=== PATIENT | female | born 1980 | race Caucasian/White ===

== ENCOUNTER 2018-10-07 16:20 | Outpatient (CLI) | payer MEDICAID | END 2018-10-07 17:44 | disposition home or self-care (01) | LOC: OBT 16:20 → L-D 16:21 → OBT 17:44 | DX: O36.8120 Decreased fetal movements, second trimester, not applicable or unspecified (principal); O09.512 Supervision of elderly primigravida, second trimester; Z3A.26 26 weeks gestation of pregnancy | CPT/HCPCS: 76815 ==

== ENCOUNTER 2018-12-31 21:57 | Inpatient (IN) | payer MEDICAID ==
[2018-12-31] MEDS ORDERED: CARBOPROST 250 MCG INJ IM (22:30)
[2018-12-31] MEDS ORDERED: LIDOCAINE 1% (MPF) 30 ML INJ INJ (22:30)
[2018-12-31] MEDS ORDERED: OXYTOCIN 30 UNITS/LR 500 ML IV ×2 (22:30)
[2018-12-31] MEDS ORDERED: BUTORPHANOL 2 MG INJ IV (22:30)
[2018-12-31] MEDS ORDERED: MISOPROSTOL 200 MCG TAB PR (22:30)
[2018-12-31] MEDS ORDERED: METHYLERGONOVINE 0.2 MG INJ IM (22:30)
[2018-12-31] MEDS ORDERED: IBUPROFEN 600 MG TAB PO (22:30)
[2018-12-31] MEDS: LACTATED RINGER'S 1,000 ML IV ×2 (22:42→22:43)
[2018-12-31 22:50] LABS: ADD MAN DIFF? NO
[2018-12-31] MEDS: AMPICILLIN 2 GM/NS (PMX) 100 ML IV (22:53)
[2018-12-31 22:58] LABS: BASOPHIL # 0.1 10^3/ul (0.0-0.1); BASOPHILS % 0.2 % (0.0-2.0); HEMATOCRIT 39.9 % (37.0-47.0); HEMOGLOBIN 13.3 g/dl (12.0-16.0); LYMPHOCYTES # 1.3 10^3/ul (0.8-2.9); LYMPHOCYTES % 5.9 % (15.0-51.0); MEAN CORPUSCULAR HEMOGLOBIN 29.6 pg (29.0-33.0); MEAN CORPUSCULAR HGB CONC 33.3 g/dl (32.0-37.0); MEAN CORPUSCULAR VOLUME 88.9 fl (82.0-101.0); MEAN PLATELET VOLUME 10.9 fl (7.4-10.4); MONOCYTE # 1.1 10^3/ul (0.3-0.9); MONOCYTES % 4.9 % (0.0-11.0); NEUTROPHIL # 19.7 10^3/ul (1.6-7.5); NEUTROPHILS % 88.4 % (39.0-77.0); PLATELET COUNT 245 10^3/UL (140-415); RED BLOOD COUNT 4.49 10^6/ul (4.20-5.40); RED CELL DISTRIBUTION WIDTH 14.1 % (11.5-14.5)
[2018-12-31 22:58] LABS: WHITE BLOOD COUNT 22.3 10^3/ul (4.8-10.8)
[2018-12-31 23:18] LABS: INR 0.87; PROTIME 11.9 Sec (11.9-14.9); PT RATIO 0.9
[2018-12-31] MEDS ORDERED: FENTAnyl 50 MCG/ML VIAL (23:20)
[2018-12-31] MEDS ORDERED: FENTAnyl 2MCG/ML-ROPIV 0.2% 100 ML (23:20)
[2018-12-31 23:26] LABS: GLUCOSE 159 mg/dl (70-220)
[2018-12-31] MEDS ORDERED: NALOXONE (0.4 MG/ML) INJ IV (23:30)
[2018-12-31 23:59] LABS: HEPATITIS B SURFACE ANTIGEN NEGATIVE (NEGATIVE)
[2019-01-01] MEDS: LACTATED RINGER'S 1,000 ML IV ×4 (04:57→20:03)
[2019-01-01] MEDS: AMPICILLIN 1 GM/NS (PMX) 50 ML IV ×3 (05:02→12:48)
[2019-01-01] MEDS: FENTAnyl 2MCG/ML-ROPIV 0.2% 100 ML BAG EPI (06:56)
[2019-01-01] MEDS: OXYTOCIN 30 UNITS/LR 500 ML IV ×2 (09:11→21:18)
[2019-01-01] MEDS ORDERED: SOD CHLORIDE 0.9% 1,000 ML IV (14:00)
[2019-01-01] MEDS ORDERED: CEFAZOLIN 2 GM/50 ML (PMX) 50 ML IVPB (15:34)
[2019-01-01] MEDS ORDERED: OXYTOCIN 30 UNITS/LR 500 ML BAG IV (15:50)
[2019-01-01] MEDS ORDERED: morphine SULFATE/PF (10 MG/10 ML) INJ (15:50)
[2019-01-01] MEDS ORDERED: PHENYLephrine 10 MG INJ (15:54)
[2019-01-01] MEDS ORDERED: ONDANSETRON 4 MG INJ (15:55)
[2019-01-01] MEDS ORDERED: OXYTOCIN 10 UNIT INJ (15:55)
[2019-01-01] MEDS ORDERED: OXYTOCIN 30 UNITS/LR 500 ML IV ×2 (16:00→20:30)
[2019-01-01] MEDS ORDERED: METHYLERGONOVINE 0.2 MG INJ IM (16:00)
[2019-01-01] MEDS ORDERED: MISOPROSTOL 200 MCG TAB PR ×2 (16:00→20:30)
[2019-01-01] MEDS ORDERED: CARBOPROST 250 MCG INJ IM ×2 (16:00→20:30)
[2019-01-01] MEDS ORDERED: ONDANSETRON 4 MG INJ IV (17:00)
[2019-01-01] MEDS ORDERED: DIPHENHYDRAMINE 50 MG INJ IV (17:00)
[2019-01-01] MEDS ORDERED: morphine 2 MG INJ IV (17:00)
[2019-01-01] MEDS ORDERED: NALOXONE (0.4 MG/ML) INJ IV (17:00)
[2019-01-01] MEDS: CEFAZOLIN 2 GM/50 ML (PMX) 50 ML IVPB (18:35)
[2019-01-01] MEDS: KETOROLAC 30 MG INJ IV (19:27)
[2019-01-01 20:12] LABS: RAPID PLASMA REAGIN NONREACTIVE (NR)
[2019-01-01] MEDS ORDERED: NACL 0.9% 3 ML SYG IV (20:30)
[2019-01-01] MEDS ORDERED: LANOLIN HPA 1 PKT TOP (20:30)
[2019-01-01] MEDS ORDERED: NA PHOSPHATE/BIPHOS 133 ML ENEMA PR (20:30)
[2019-01-02] MEDS: METHYLERGONOVINE 0.2 MG INJ IM (00:27)
[2019-01-02] MEDS: OXYTOCIN 30 UNITS/LR 500 ML IV (04:03)
[2019-01-02] MEDS: KETOROLAC 30 MG INJ IV ×2 (06:01→12:46)
[2019-01-02 11:11] LABS: ADD MAN DIFF? NO
[2019-01-02 11:13] LABS: WHITE BLOOD COUNT 19.1 10^3/ul (4.8-10.8)
[2019-01-02 11:13] LABS: BASOPHIL # 0.1 10^3/ul (0.0-0.1); BASOPHILS % 0.3 % (0.0-2.0); EOSINOPHILS % 0.2 % (0.0-7.0); HEMATOCRIT 28.8 % (37.0-47.0); HEMOGLOBIN 9.8 g/dl (12.0-16.0); LYMPHOCYTES # 1.2 10^3/ul (0.8-2.9); LYMPHOCYTES % 6.1 % (15.0-51.0); MEAN CORPUSCULAR HEMOGLOBIN 30.3 pg (29.0-33.0); MEAN CORPUSCULAR VOLUME 89.2 fl (82.0-101.0); MEAN PLATELET VOLUME 10.5 fl (7.4-10.4); MONOCYTE # 1.4 10^3/ul (0.3-0.9); MONOCYTES % 7.1 % (0.0-11.0); NEUTROPHIL # 16.4 10^3/ul (1.6-7.5); NEUTROPHILS % 85.8 % (39.0-77.0); PLATELET COUNT 186 10^3/UL (140-415); RED BLOOD COUNT 3.23 10^6/ul (4.20-5.40); RED CELL DISTRIBUTION WIDTH 14.4 % (11.5-14.5)
[2019-01-02] MEDS: LACTATED RINGER'S 1,000 ML IV ×3 (12:54→22:21)
[2019-01-02] MEDS: HYDROCODONE/APAP (5/325) TAB PO (19:04)
[2019-01-03] MEDS: HYDROCODONE/APAP (5/325) TAB PO ×2 (00:36→15:47)
[2019-01-03 05:18] LABS: ADD MAN DIFF? NO
[2019-01-03 05:22] LABS: BASOPHILS % 0.3 % (0.0-2.0); EOSINOPHILS # 0.2 10^3/ul (0.0-0.5); EOSINOPHILS % 1.1 % (0.0-7.0); HEMATOCRIT 25.3 % (37.0-47.0); HEMOGLOBIN 8.7 g/dl (12.0-16.0); LYMPHOCYTES # 1.9 10^3/ul (0.8-2.9); LYMPHOCYTES % 13.5 % (15.0-51.0); MEAN CORPUSCULAR HEMOGLOBIN 30.9 pg (29.0-33.0); MEAN CORPUSCULAR HGB CONC 34.4 g/dl (32.0-37.0); MEAN CORPUSCULAR VOLUME 89.7 fl (82.0-101.0); MEAN PLATELET VOLUME 11.2 fl (7.4-10.4); MONOCYTE # 1.1 10^3/ul (0.3-0.9); MONOCYTES % 7.8 % (0.0-11.0); NEUTROPHIL # 10.7 10^3/ul (1.6-7.5); NEUTROPHILS % 76.8 % (39.0-77.0); PLATELET COUNT 188 10^3/UL (140-415); RED BLOOD COUNT 2.82 10^6/ul (4.20-5.40); RED CELL DISTRIBUTION WIDTH 14.3 % (11.5-14.5)
[2019-01-03] MEDS: IBUPROFEN 800 MG TAB PO ×2 (05:46→13:59)
[2019-01-03] MEDS: LACTATED RINGER'S 1,000 ML IV ×2 (06:21→14:21)
[2019-01-03] MEDS: DIPHTH/TET/ACEL PERTUSS (ADULT) 0.5 ML VIAL IM* (14:01)
[2019-01-04] MEDS ORDERED: MEASLES,MUMPS,RUBELLA VACCINE INJ SC* (09:00)
== END 2019-01-03 16:20 | disposition home or self-care (01) | DRG 788 ==
LOC: OBT 21:57 → L-D 21:58 → OBT 22:19 → MS1 01-01 19:50 → L-D 22:19
PROVIDERS: Obstetrics & Gynecology
PROC: 10D00Z1 Extraction of Products of Conception, Low, Open Approach (ICD-10-PCS; principal; 2019-01-01 15:45)
DX: O82 Encounter for cesarean delivery without indication (principal); Z3A.38 38 weeks gestation of pregnancy; Z37.0 Single live birth; O24.410 Gestational diabetes mellitus in pregnancy, diet controlled
CPT/HCPCS: 62322; 82947; 82962; 85025; 85610; 85730; 86592; 86850; 86900; 86901; 87340; 88307; 99464